=== PATIENT | female | born 1945 | race Hispanic/Latino ===

== ENCOUNTER 2019-12-25 21:24 | Observation (INO) | payer OTHER, SELFPAY ==
[2019-12-26] MEDS ORDERED: Acetaminophen 325 MG TAB PO PRN (00:01)
[2019-12-26] MEDS ORDERED: Senokot S 8.6-50 MG TAB PO PRN (00:01)
[2019-12-26] MEDS ORDERED: HYDROcodone/Acetaminophen 5/325 mg Tablet PO PRN (00:01)
[2019-12-26] MEDS ORDERED: Dextrose 50% Abboject 50 ML SYRINGE SLOW IVP PRN (00:35)
[2019-12-26] MEDS ORDERED: Dextrose 5% in Water 1,000 ML IV PRN (00:35)
[2019-12-26] MEDS ORDERED: HumaLOG 300 UNITS/3 ML VIAL SC PRN ×2 (00:35)
[2019-12-26 01:17] VITALS: BMI 28.2
[2019-12-26] MEDS: Sodium Chloride 0.9% 1,000 ML IV SCH ×2 (01:40→18:09)
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
[2019-12-26] MEDS: Vancomycin 1.5 GRAM/300 ML BAG 1.5 GM in Premix Bag 1 BAG IVPB SCH ×2 (04:04→16:49)
[2019-12-26 05:46] LABS: #Eosinphils 0.2 thou/uL (0.0-0.7); #Lymphocytes 3.4 thou/uL (1.20-3.40); #Monocytes 0.7 thou/uL (0.11-0.59); #Neutrophils 5.4 thou/uL (1.40-6.50); %Basophils 0.3 % (0.0-1.0); %Eosinophils 2.2 % (0.0-10.0); %Lymphocytes 34.9 % (21.0-51.0); %Monocytes 7.5 % (0.0-10.0); %Neutrophils 55.1 % (42.0-75.0); Hemoglobin 13.2 g/dL (12.0-16.0); Mean Corpuscular Hemoglobin 29.7 pg (27.0-31.0); Mean Corpuscular Volume 89.9 fL (78.0-98.0); Mean Platelet Volume 8.3 fL (7.4-10.4); Platelet Count 276 thou/uL (130-400); RBC Distribution Width 12.2 % (11.5-14.5); Red Blood Cell (RBC) Count 4.45 mill/uL (4.20-5.40); White Blood Cell (WBC) Count 9.7 thou/uL (4.8-10.8)
[2019-12-26 06:14] LABS: Anion Gap 12 mmol/L (10-20); BUN (Urea Nitrogen) 16 mg/dL (9.8-20.1); Calc. Creatinine Clearance 100 mL/min (70-130); Calcium 10.1 mg/dL (7.8-10.44); Carbon Dioxide 31 mmol/L (23-31); Chloride 103 mmol/L (98-107); Estimated GFR-MDRD 73; Glucose 122 mg/dL (83-110); Potassium 4.1 mmol/L (3.5-5.1); Sodium 142 mmol/L (136-145)
[2019-12-26] MEDS: Cefepime 2 GM in Sodium Chloride 0.9% 100 ML IVPB SCH ×2 (07:09→18:09)
[2019-12-26] MEDS ORDERED: Propranolol 10 MG TAB PO SCH (10:00)
[2019-12-26 12:28] LABS: SARS-CoV-2 MS2 Positive; SARS-CoV-2 N Gene Negative; SARS-CoV-2 S Gene Negative; SARS-CoV-2 orf1ab Negative
--- NOTE | 2019-12-26 18:35 | PDOC.EVN ---
Event Note - Event Note Event Note: When I came to see the patient she had been taken down to surgery. No complaints noted from staffand vital signs are stable.
[2019-12-26] MEDS ORDERED: Propofol 500 MG/50 ML VIAL ONE (19:14)
[2019-12-26] MEDS ORDERED: Midazolam HCl 2 mg/2 ml Vial ONE (19:14)
[2019-12-26] MEDS ORDERED: Ketamine 50 MG/ML (10ML VIAL) ONE (19:14)
[2019-12-26] MEDS ORDERED: Fentanyl 100 MCG/2 ML VIAL ONE ×2 (19:14→20:27)
[2019-12-26] MEDS ORDERED: Lidocaine 1% w/Epinephrine 1:100K 20 ML VIAL ONE (19:41)
[2019-12-26] MEDS ORDERED: Lidocaine 1% (PF) 30 ML VIAL ONE (19:42)
[2019-12-26] MEDS ORDERED: Promethazine HCl 25 MG/ML VIAL SLOW IVP PRN (20:20)
[2019-12-26] MEDS ORDERED: PACU-Morphine 4MG/ML VIAL SLOW IVP PRN (20:20)
[2019-12-26] MEDS ORDERED: Promethazine HCl 25 MG/ML VIAL IM PRN (20:20)
[2019-12-26] MEDS ORDERED: HYDROmorphone 2 MG/ML VIAL SLOW IVP PRN (20:20)
[2019-12-26] MEDS ORDERED: Ondansetron HCl/PF 4 MG/2 ML Vial IVP PRN (20:20)
[2019-12-26] MEDS ORDERED: Ketorolac Tromethamine 30 MG/ML VIAL ONE (20:26)
[2019-12-26] MEDS: Propranolol 10 MG TAB PO SCH (22:38)
[2019-12-26] MEDS: HYDROcodone/Acetaminophen 5/325 mg Tablet PO PRN (22:38)
[2019-12-27] MEDS: Sodium Chloride 0.9% 1,000 ML IV SCH ×2 (02:29→18:39)
[2019-12-27] MEDS: Vancomycin 1.5 GRAM/300 ML BAG 1.5 GM in Premix Bag 1 BAG IVPB SCH ×2 (02:29→15:12)
[2019-12-27] MEDS: Cefepime 2 GM in Sodium Chloride 0.9% 100 ML IVPB SCH ×2 (06:04→18:24)
--- NOTE | 2019-12-27 07:47 | RAD ---
RIGHT HAND RADIOGRAPHS 3 VIEWS: DATE: 12/27/2019. PROVIDED CLINICAL HISTORY: Pain. FINDINGS: No comparisons. There is localized soft tissue swelling about the thumb IP joint. There is probable associated soft tissue gas. There is no evidence for a fracture. Degenerative changes are seen. A bsence of the 2nd through 4th radius distal to the mid portions of the proximal phalanges. IMPRESSION: Localized soft tissue swelling and probable subtle soft tissue gas about the thumb IP joint. Correla te with concerns for an infectious process. POS: NIC
[2019-12-27] MEDS: Propranolol 10 MG TAB PO SCH ×2 (08:29→20:24)
--- NOTE | 2019-12-27 09:47 | PDOC.HOSPP ---
- Subjective Encounter Date: 12/27/19 Encounter Time: 09:44 Subjective: Ms. Deras was seen today in follow-up of cellulitis and abscess of the right thumb. She notes just a little pain in the finger, but otherwise ok. No new complaints. - Objective Vital Signs & Weight: Vital Signs (12 hours) Temp Pulse Resp BP Pulse Ox 12/27/19 07:21 98.1 F 64 16 149/89 H 97 12/27/19 02:50 68 16 128/72 95 12/27/19 01:50 66 16 123/69 94 L 12/27/19 00:55 66 133/72 93 L 12/26/19 23:50 71 137/75 92 L 12/26/19 22:50 65 124/73 95 12/26/19 22:20 73 124/66 98 12/26/19 21:50 61 131/79 96 Weight Weight 214 lb 0.043 oz I&O: 12/26/19 12/27/19 12/28/19 06:59 06:59 06:59 Intake Total 300 Balance 300 Result Diagrams: 12/26/19 05:15 12/26/19 05:15 Additional Labs: Accuchecks 12/27/19 12/26/19 12/26/19 05:54 14:40 10:40 POC Glucose 104 107 121 H Hospitalist ROS - Medication Medications: Active Medications Generic Name Dose Route Start Last Admin Trade Name Freq PRN Reason Stop Dose Admin Hydrocodone Bitart/Acetaminophen 1 tab 12/26/19 00:01 12/26/19 22:38 Neptune 5/325 PO 1 tab Q4H PRN Administration Moderate Pain (4-6) Sodium Chloride 1,000 mls @ 75 mls/hr 12/26/19 00:30 12/27/19 02:29 Normal Saline 0.9% IV 1,000 mls .[id number] TEJ Administration Cefepime HCl 2 gm/ Sodium 100 mls @ 200 mls/hr 12/26/19 06:00 12/27/19 06:04 Chloride IVPB 100 mls 0600,1800 TEJ Administration Vancomycin HCl 1.5 gm/ Device 300 mls @ 200 mls/hr 12/26/19 03:00 12/27/19 02 :29 IVPB 300 mls 0300,1500 TEJ Administration Pantoprazole Sodium 40 mg 12/26/19 09:00 12/27/19 08:29 Protonix PO 40 mg DAILY TEJ Administration Propranolol HCl 10 mg 12/26/19 21:00 12/27/19 08:29 Inderal PO 10 mg BID TEJ Administration - Exam Eye: PERRL, anicteric sclera Heart: RRR, no murmur, no gallops, no rubs, normal peripheral pulses Respiratory: CTAB, no wheezes, no rales, no ronchi, normal chest expansion, no tachypnea Gastrointestinal: soft, non-tender, non-distended, normal bowel sounds, no palpable masses Extremities: no cyanosis (+ swelling of the first finger, and it is wrapped, she has ampuation of the 2-4th fingers on that same hand. goor radial and ulnar pulse) Hosp A/P (1) Cellulitis of right thumb Code(s): L03.011 - CELLULITIS OF RIGHT FINGER Status: Acute (2) Diabetes mellitus type 2 in nonobese Code(s): E11.9 - TYPE 2 DIABETES MELLITUS WITHOUT COMPLICATIONS Status: Chronic (3) Hypertension Code(s): I10 - ESSENTIAL (PRIMARY) HYPERTENSION Status: Chronic - Plan * Cellulitis of the thumb on the right hand- she is s/p I and D. and cultures have been sent * Continue IV antibiotics pending culture results * DM- blood glucose is stable- re-start Metformin, and continue SSI * HTN- blood pressure is stable- will re-start her home medications
--- NOTE | 2019-12-27 10:35 | CON ---
DATE OF CONSULTATION: We were asked by the [facility] to see the patient. She came in with a fairly large, red, inflamed right thumb. HISTORY OF PRESENT ILLNESS: Per Roxie, who is interpreting, is that she hit it a few weeks ago and then she hit it again recently and it remained large. She did try and poke it with a needle and did per reports get some purulent discharge, thumb continued to plague patient and therefore, she came into the hospital for evaluation. She has good sensations to the tip of her thumb. Able to move it well, but area to the distal thumb is quite tender to palpation. She does not have any signs of cellulitis trickling up her arm. It looks to be contained in that right thumb. PAST MEDICAL HISTORY: 1. Hypertension. 2. Diabetes. 3. Cholesterol. CURRENT MEDICATIONS: 1. Lisinopril. 2. Metformin. 3. Propranolol. 4. Simvastatin. ALLERGIES: NO KNOWN DRUG ALLERGIES. PAST SURGICAL HISTORY: She did lose her second, third, fourth digits on the right hand, and had those repaired. SOCIAL HISTORY: No alcohol, nicotine, or illicit drug use whatsoever. FAMILY HISTORY: For this visit is noncontributory. REVIEW OF SYSTEMS: She has no complaints other than the right thumb. Right now, denies any chest pain or shortness of breath. No bowel or bladder problems per clinical recruiter. She feels quite good, and rest of review of systems is negative. PHYSICAL EXAMINATION: GENERAL: Well-nourished, well-developed female, alert, pleasant, no acute distress. Speech is clear. Affect is pleasant. Answers question appropriately per clinical recruiter without any difficulties. HEENT: Face is symmetric. Tongue is midline. NECK: Supple. Trachea in midline. Moving well. EXTREMITIES: Upper extremities are equal size, shape, symmetry, normal bulk and tone with the exception of the right thumb, which has quite a bit of edema, erythema, and it is tender to ther touch. She has good sensations to the thumb, and again, there are no cellulitis like symptoms running up the arm. Pulses are intact. Sensations good. VITAL SIGNS: Respiratory rate 16. No acute distress. Rest of physical exam is normal. ASSESSMENT: Right thumb infection. PLAN: We will get her to the OR today and get her washed out. Per clinical recruiter, this was explained to her. We also went over the risks and benefits of surgery, and she is amenable to go forth with the surgery. Her questions and concerns have been addressed. We will get her some preoperative antibiotics after we I and D the thumb, get some cultures, and then probably leave a drain in, and if she is doing okay, might be able to discharge tomorrow morning. Job ID: [id number]
[2019-12-27 14:27] LABS: Vancomycin, Trough 19.7 ug/mL
[2019-12-27] MEDS: HYDROcodone/Acetaminophen 5/325 mg Tablet PO PRN ×2 (15:16→20:24)
--- NOTE | 2019-12-27 15:17 | OP ---
DATE OF PROCEDURE: 12/26/2019 PREOPERATIVE DIAGNOSIS: Right thumb abscess. POSTOPERATIVE DIAGNOSIS: Right thumb subcutaneous tophi. PROCEDURE PERFORMED: Incision and debridement of right thumb tophi. ANESTHESIA: General. TOURNIQUET TIME: 21 minutes at 250 mmHg. COMPLICATIONS: None. DRAINS: None. SPECIMEN: Swab sent for Gram-stain, culture, and sensitivity as well as tissue sent to Path for gross. OUTCOME: Satisfactory. INDICATIONS FOR PROCEDURE: The patient is a 74 year old lady, who was admitted on December 24 to the hospital after transferred from our [facility] with a 2-week history of pain and swelling in the right thumb. She reports that 2 weeks ago, she accidentally struck her thumb with a hammer and since that time has had some increasing pain and swelling, most noticeable over the interphalangeal joint of this thumb. She reports that she poked the area with a needle and did have some pus come out from this area and with this presented to the emergency room. She was subsequently transferred to [facility] for Orthopedic evaluation. She was found to have a white blood cell count of 9.7. She clinically was found to have a very swollen, what felt to be a possible subcutaneous abscess over this interphalangeal joint. There was no evidence of pain to palpation along the flexor sheath or into the thenar eminence. As such, the patient now taken to the operating room for incision and drainage. DESCRIPTION OF PROCEDURE: The patient was brought to the operating room and a time-out performed followed by induction of general anesthesia. Next, she was positioned supine on the OR table and a sterile prep and drape performed of the right upper extremity. Next, centered on the site from her attempt at self drainage with a needle, a small V-shaped incision was made over the dorsal radial aspect of the thumb. After skin was sharply incised, dissection carried down bluntly into the subcutaneous space and at this point, what appeared to be tophi was really encountered. This was imbedded throughout the soft tissue in the subcutaneous space. It did not appear to enter the interphalangeal joint itself as the capsule did appear to be intact. I really did not encounter purulent material to speak off, but rather just this tophi that was quite diffuse. As such using a combination of sharp technique with scalpel as well as a curette, the tophaceous material was excised from the subcutaneous space. At the completion of this, the wound was thoroughly irrigated with a liter of normal saline with bulb syringe and then a closure performed with 3-0 nylon. Xeroform gauze and tape dressing was applied to the thumb and then the patient was transferred to recovery room in stable condition. There were no complications. She tolerated the procedure well. Job ID: [id number] MTDD
[2019-12-27] MEDS ORDERED: Atorvastatin Calcium 20 MG TAB PO SCH (21:00)
[2019-12-28] MEDS: Vancomycin 1.5 GRAM/300 ML BAG 1.5 GM in Premix Bag 1 BAG IVPB SCH (03:56)
[2019-12-28] MEDS: Cefepime 2 GM in Sodium Chloride 0.9% 100 ML IVPB SCH (05:47)
[2019-12-28] MEDS: Sodium Chloride 0.9% 1,000 ML IV SCH (07:02)
[2019-12-28] MEDS ORDERED: metFORMIN 500 MG TAB PO SCH (08:00)
[2019-12-28] MEDS: Propranolol 10 MG TAB PO SCH (08:23)
[2019-12-28] MEDS ORDERED: Lisinopril 5 MG TAB PO SCH (09:00)
[2019-12-28] MEDS ORDERED: Sulfameth/Trimethoprim DS 800-160mg TAB PO SCH ×2 (09:15→21:00)
[2019-12-28 11:17] VITALS: BP 129/74; TEMP 98.5
--- NOTE | 2019-12-28 20:41 | DIS ---
DATE OF ADMISSION: 12/25/2019 DATE OF DISCHARGE: 12/28/2019 DISCHARGE DISPOSITION: Home. DISCHARGE DIAGNOSES: 1. Cellulitis of the first finger on the right hand. 2. Diabetes mellitus type 2. 3. Hypertension. 4. Probable gout. DISCHARGE MEDICATIONS: 1. Bactrim DS 1 tablet twice daily. 2. Simvastatin 40 mg q.p.m. 3. Propranolol 10 mg twice daily. 4. Metformin 500 mg daily. 5. Lisinopril 5 mg daily. PROCEDURES DONE DURING THE HOSPITAL STAY: The patient had an I and D of the thumb. CODE STATUS: Full code. ALLERGIES: NO KNOWN DRUG ALLERGIES. HOSPITAL COURSE: Ms. Cassie Deras is a pleasant 74-year-old female, who presented to the hospital with a swollen and painful thumb. She says that she had tried treating it on her own, but she was not successful. The swelling got worse and she came to the hospital. She was started on IV antibiotics and Orthopedic Surgery was consulted. 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 She was placed on antibiotics and cultures were taken. At the time of discharge, the cultures were negative and she was instructed to follow up with her physician and workup for gout can be undertaken by her primary care physician. Job ID: [id number]
== END 2019-12-28 13:10 | disposition home or self-care (01) ==
LOC: SURG A 23:18 → INTOOBSV 23:18
PROVIDERS: ADMIT Internal Medicine; ATTEND Internal Medicine
PROC: 0HBFXZZ Excision of Right Hand Skin, External Approach (ICD-10-PCS; principal; 2019-12-28)
DX: M1A.9XX1 Chronic gout, unspecified, with tophus (tophi) (principal); I10 Essential (primary) hypertension; E11.9 Type 2 diabetes mellitus without complications; E78.00 Pure hypercholesterolemia, unspecified; E78.5 Hyperlipidemia, unspecified; Z79.84 Long term (current) use of oral hypoglycemic drugs; Z79.899 Other long term (current) drug therapy
CPT/HCPCS: 36415; 36416; 80048; 80202; 84550; 85025; 87070; 87102; 87205; 87635; 88305; 89060; 96365; 96366; 96367; 96376; G0378; J0692; J1885; J2001; J2250; J2704; J3010; J3370; J3490; U0003

== ENCOUNTER 2023-03-23 23:02 | Inpatient (IN) | payer MEDICAID, SELFPAY ==
[2023-03-23] MEDS ORDERED: Pantoprazole 40 MG VIAL ONE (23:20)
[2023-03-23] MEDS ORDERED: Ondansetron PF 4 MG/2 ML Vial ONE (23:20)
[2023-03-23 23:21] LABS: Analyzer IN Cardio ER; Base Excess (BEa) -19.1 mEq/L (-2.0 to +3.0); Calcium, Ionized (arterial) 1.15 mmol/L (1.12-1.30); Carboxyhemoglobin (COHb) 0.1 gm% (0.0-3.0); Hematocrit-ABG 37 % (36.0-47.0); Hemoglobin (Hb) 12.7 g/dL (12.0-16.0); O2 Tension (PaO2), arterial 121.3 mmHg (> 70.0)
[2023-03-23 23:25] LABS: #Monocytes 0.5 thou/uL (0.11-0.59); #Neutrophils 12.6 thou/uL (1.40-6.50); %Basophils 0.1 % (0.0-1.0); %Lymphocytes 2.5 % (21.0-51.0); %Monocytes 3.5 % (0.0-10.0); %Neutrophils 93.7 % (42.0-75.0); Hematocrit 36.4 % (36.0-47.0); Hemoglobin 12.3 g/dL (12.0-16.0); Mean Corpuscular HGB CONC 33.8 g/dL (32.0-36.0); Mean Corpuscular Hemoglobin 29.6 pg (27.0-31.0); Mean Corpuscular Volume 87.5 fl (78.0-98.0); Mean Platelet Volume 11.9 fL (7.4-10.4); Platelet Count 150 10x3/uL (130-400); RBC Distribution Width 13.9 % (11.5-14.5); Red Blood Cell (RBC) Count 4.16 mill/uL (4.20-5.40); White Blood Cell (WBC) Count 13.4 10x3/uL (4.8-10.8)
[2023-03-23 23:27] LABS: Actual Bicarbonate (HCO3a) 6.6 mEq/L (22-28); pH, Arterial 7.206 (7.35-7.45)
[2023-03-23 23:28] LABS: Potassium - ABG Lab 7.27 mmol/L (3.70-5.30); Puncture Site LBA
[2023-03-23] MEDS ORDERED: Pantoprazole 80 MG, Admixture Fee 1 EACH in Sodium Chloride 0.9% 100 ML IVPB SCH (23:30)
[2023-03-23] MEDS ORDERED: Cefepime 2 GM VIAL ONE (23:31)
[2023-03-23 23:39] LABS: INR-International Normal Ratio 1.3; PTT 34.1 sec (22.9-36.1); Prothrombin Time 16.5 sec (12.0-14.7)
[2023-03-23] MEDS ORDERED: Calcium Chloride 1 GM/10 ML Abboject SYRINGE ONE (23:48)
[2023-03-23] MEDS ORDERED: Insulin Regular 300 UNITS/3 ML VIAL ONE (23:48)
[2023-03-23] MEDS ORDERED: Dextrose 50% Abboject 50 ML SYRINGE ONE (23:48)
[2023-03-23] MEDS ORDERED: Sodium Bicarb 50 MEQ/50 ML VIAL ONE (23:48)
[2023-03-23 23:58] LABS: ALT (SGPT) 21 U/L (8-55); AST (SGOT) 9 U/L (5-34); Albumin 4.3 g/dL (3.4-4.8); Alkaline Phosphatase 69 U/L (40-110); Bilirubin, Total 0.6 mg/dL (0.2-1.2); Calc. Creatinine Clearance 0 mL/min (70-130); Calcium 9.7 mg/dL (7.8-10.44); Chloride 103 mmol/L (98-107); Estimated GFR 3; Glucose 145 mg/dL (83-110); Lipase 894 U/L (8-78); Protein, Total 8.3 g/dL (5.8-8.1); Sodium 141 mmol/L (136-145)
[2023-03-23 23:59] LABS: BUN (Urea Nitrogen) 320 mg/dL (9.8-20.1)
[2023-03-24 00:01] LABS: Carbon Dioxide Less than 8 mmol/L (23-31); Potassium 7.3 mmol/L (3.5-5.1)
[2023-03-24 00:01] LABS: Bacteria/HPF 4+ HPF (None Seen); Bilirubin Negative (Negative); Blood, Urine 1+ (Negative); CAUTI Indications for Culture Alt mental st,lethar; Clarity Turbid (Clear); Glucose, Urine (Dipstick) Normal (Negative); Ketone, Urine Trace mg/dL (Negative); Leukocyte 500 Leu/uL (Negative); Nitrite Negative (Negative); Protein, Urine (Dipstick) 100 mg/dL (Neg-Trace); Specific Gravity, Urine 1.024 (1.002-1.036); Squamous Epithelial None Seen HPF (0-3); WBC/HPF Greater than 50 HPF (0-3); pH, Urine 5.5 (5.0-9.0)
[2023-03-24 00:05] LABS: Urine Culture Reflex Yes Yes
[2023-03-24 00:05] LABS: Troponin I 0.247 ng/mL (< 0.028)
[2023-03-24] MEDS ORDERED: LOKELMA 10 GM PACKET PO SCH (00:45)
[2023-03-24] MEDS ORDERED: Sodium Bicarbonate 150 MEQ in Dextrose 5% in Water 1,000 ML IV SCH ×2 (00:45→07:30)
[2023-03-24] MEDS ORDERED: Ondansetron ODT 4 MG TAB PO PRN (01:34)
[2023-03-24] MEDS ORDERED: Acetaminophen 650 MG Suppository PR PRN (01:34)
[2023-03-24] MEDS ORDERED: Ondansetron PF 4 MG/2 ML Vial IVP PRN ×2 (01:34→05:07)
[2023-03-24] MEDS ORDERED: Sodium Bicarbonate 150 MEQ in Dextrose 5% in Water 1,000 ML IV ONE (01:45)
[2023-03-24] MEDS ORDERED: Sodium Chloride 0.9% 1,000 ML IV SCH ×2 (01:45→04:45)
[2023-03-24 02:33] LABS: Calc. Creatinine Clearance 0 mL/min (70-130); Calcium 9.6 mg/dL (7.8-10.44); Chloride 112 mmol/L (98-107); Estimated GFR 3; Glucose 129 mg/dL (83-110); Sodium 144 mmol/L (136-145)
[2023-03-24 02:43] LABS: Carbon Dioxide Less than 8 mmol/L (23-31); Potassium 6.3 mmol/L (3.5-5.1)
[2023-03-24 02:45] LABS: BUN (Urea Nitrogen) 297 mg/dL (9.8-20.1)
[2023-03-24] MEDS ORDERED: Dextrose 50% Abboject 50 ML SYRINGE SLOW IVP PRN (03:05)
[2023-03-24] MEDS ORDERED: Glucagon 1 MG/ML KIT IM PRN (03:05)
[2023-03-24] MEDS ORDERED: Dextrose 5% in Water 1,000 ML IV PRN (03:05)
[2023-03-24] MEDS ORDERED: HumaLOG 300 UNITS/3 ML VIAL SC PRN (03:05)
[2023-03-24 03:27] LABS: Critical Call Chem Troponin I RESULT DECREASING; Troponin I 0.207 ng/mL (< 0.028)
[2023-03-24] MEDS ORDERED: dilTIAZem 25 MG/5 ML VIAL ONE (03:54)
[2023-03-24] MEDS: dilTIAZem 25 MG/5 ML VIAL SLOW IVP SCH ×2 (04:10→04:27)
[2023-03-24] MEDS: Lactated Ringer's 1,000 ML IV SCH ×2 (04:13→04:18)
[2023-03-24] MEDS ORDERED: Vancomycin 1.5 GRAM/300 ML BAG 1.5 GM in Premix Bag 1 BAG IVPB SCH (04:15)
[2023-03-24] MEDS ORDERED: Amiodarone 450 MG in Dextrose 5% in Water 250 ML IVPB SCH (04:15)
[2023-03-24] MEDS ORDERED: Vancomycin Dose by Levels Sliding Scale (Wt 71-99) FS SCH (04:15)
[2023-03-24] MEDS ORDERED: dilTIAZem 25 MG/5 ML VIAL SLOW IVP SCH (04:23)
[2023-03-24 04:40] LABS: Base Excess (BEa) -16.5 mEq/L (-2.0 to +3.0); Carboxyhemoglobin (COHb) 0.4 gm% (0.0-3.0); Hematocrit-ABG 37 % (36.0-47.0); Hemoglobin (Hb) 12.6 g/dL (12.0-16.0); O2 Tension (PaO2), arterial 103.3 mmHg (> 70.0); Potassium - ABG Lab 5.32 mmol/L (3.70-5.30); pH, Arterial 7.254 (7.35-7.45)
[2023-03-24 04:44] LABS: Puncture Site RRA
[2023-03-24] MEDS ORDERED: Dextrose 50% Abboject 50 ML SYRINGE SLOW IVP SCH (05:00)
[2023-03-24 05:28] LABS: #Monocytes 0.8 thou/uL (0.11-0.59); #Neutrophils 11.8 thou/uL (1.40-6.50); %Basophils 0.1 % (0.0-1.0); %Monocytes 5.9 % (0.0-10.0); %Neutrophils 86.5 % (42.0-75.0); Hemoglobin 12.7 g/dL (12.0-16.0); Mean Corpuscular HGB CONC 34.3 g/dL (32.0-36.0); Mean Corpuscular Hemoglobin 29.6 pg (27.0-31.0); Mean Corpuscular Volume 86.2 fl (78.0-98.0); Mean Platelet Volume 12.4 fL (7.4-10.4); Platelet Count 93 10x3/uL (130-400); RBC Distribution Width 13.8 % (11.5-14.5); Red Blood Cell (RBC) Count 4.29 mill/uL (4.20-5.40); White Blood Cell (WBC) Count 13.6 10x3/uL (4.8-10.8)
[2023-03-24 05:38] LABS: Lactic Acid 1.4 mmol/L (0.5-2.2)
[2023-03-24 05:45] LABS: Calc. Creatinine Clearance 6 mL/min (70-130); Calcium 9.8 mg/dL (7.8-10.44); Chloride 110 mmol/L (98-107); Estimated GFR 3; Glucose 120 mg/dL (83-110); Lipase 835 U/L (8-78); Potassium 5.8 mmol/L (3.5-5.1); Sodium 146 mmol/L (136-145)
[2023-03-24 05:47] LABS: Carbon Dioxide Less than 8 mmol/L (23-31)
[2023-03-24 05:54] LABS: BUN (Urea Nitrogen) 287 mg/dL (9.8-20.1)
[2023-03-24 06:06] LABS: Troponin I 0.192 ng/mL (< 0.028)
[2023-03-24 08:13] LABS: Anion Gap 30 mmol/L (10-20); Calc. Creatinine Clearance 6 mL/min (70-130); Calcium 9.8 mg/dL (7.8-10.44); Carbon Dioxide 10 mmol/L (23-31); Chloride 110 mmol/L (98-107); Estimated GFR 4; Glucose 150 mg/dL (83-110); Sodium 145 mmol/L (136-145)
[2023-03-24 08:46] LABS: Burr Cells SLIGHT = 2-5 cells (100X) (0-1/hpf); RBC Morph Comment Within Normal Limits
[2023-03-24 08:47] LABS: Platelet Adequacy Comment Appears Decreased
[2023-03-24 09:00] LABS: BUN (Urea Nitrogen) 274 mg/dL (9.8-20.1)
[2023-03-24] MEDS ORDERED: Heparin 5,000 UNITS/ML VIAL SC SCH (09:00)
[2023-03-24 15:19] LABS: #Monocytes 0.9 thou/uL (0.11-0.59); %Basophils 0.2 % (0.0-1.0); %Eosinophils 0.1 % (0.0-10.0); %Lymphocytes 9.4 % (21.0-51.0); %Monocytes 7.9 % (0.0-10.0); Hematocrit 34.5 % (36.0-47.0); Hemoglobin 12.1 g/dL (12.0-16.0); Mean Corpuscular HGB CONC 35.1 g/dL (32.0-36.0); Mean Corpuscular Hemoglobin 29.7 pg (27.0-31.0); Mean Corpuscular Volume 84.8 fl (78.0-98.0); Mean Platelet Volume 12.4 fL (7.4-10.4); Platelet Count 107 10x3/uL (130-400); RBC Distribution Width 13.5 % (11.5-14.5); Red Blood Cell (RBC) Count 4.07 mill/uL (4.20-5.40)
[2023-03-24 16:09] LABS: Anion Gap 27 mmol/L (10-20); Calc. Creatinine Clearance 9 mL/min (70-130); Calcium 9.4 mg/dL (7.8-10.44); Carbon Dioxide 16 mmol/L (23-31); Chloride 109 mmol/L (98-107); Estimated GFR 6; Glucose 195 mg/dL (83-110); Potassium 3.6 mmol/L (3.5-5.1); Sodium 148 mmol/L (136-145)
[2023-03-24] MEDS: HumaLOG 300 UNITS/3 ML VIAL SC PRN ×2 (16:56→22:36)
[2023-03-24 17:10] LABS: BUN (Urea Nitrogen) 241 mg/dL (9.8-20.1)
[2023-03-24] MEDS ORDERED: Sodium Bicarbonate 100 MEQ in Dextrose 5% in Water 1,000 ML IV SCH (18:30)
[2023-03-24 19:34] LABS: Anion Gap 27 mmol/L (10-20); Calc. Creatinine Clearance 10 mL/min (70-130); Calcium 9.3 mg/dL (7.8-10.44); Carbon Dioxide 13 mmol/L (23-31); Chloride 113 mmol/L (98-107); Estimated GFR 7; Glucose 170 mg/dL (83-110); Potassium 3.9 mmol/L (3.5-5.1); Sodium 149 mmol/L (136-145)
[2023-03-24 19:47] LABS: BUN (Urea Nitrogen) 225 mg/dL (9.8-20.1)
[2023-03-24] MEDS: fentaNYL 50 mcg/mL 1 mL Vial SLOW IVP PRN ×2 (20:36→21:54)
[2023-03-24] MEDS: Pantoprazole 40 MG VIAL IVP SCH (20:47)
[2023-03-24] MEDS ORDERED: Cefepime 0.5 GM in Sodium Chloride 0.9% 100 ML IVPB SCH (21:00)
[2023-03-25 04:25] LABS: #Monocytes 0.6 thou/uL (0.11-0.59); #Neutrophils 8.8 thou/uL (1.40-6.50); %Basophils 0.1 % (0.0-1.0); %Lymphocytes 7.4 % (21.0-51.0); %Monocytes 5.7 % (0.0-10.0); %Neutrophils 86.4 % (42.0-75.0); Hematocrit 36.4 % (36.0-47.0); Hemoglobin 12.5 g/dL (12.0-16.0); Mean Corpuscular HGB CONC 34.3 g/dL (32.0-36.0); Mean Corpuscular Hemoglobin 30.2 pg (27.0-31.0); Mean Platelet Volume 12.1 fL (7.4-10.4); Platelet Count 108 10x3/uL (130-400); RBC Distribution Width 13.7 % (11.5-14.5); Red Blood Cell (RBC) Count 4.14 mill/uL (4.20-5.40); White Blood Cell (WBC) Count 10.2 10x3/uL (4.8-10.8)
[2023-03-25 04:28] LABS: Mean Corpuscular Volume 87.9 fl (78.0-98.0)
[2023-03-25 04:37] LABS: Vancomycin, Random 14.6 ug/mL (See Comment)
[2023-03-25 04:51] LABS: ALT (SGPT) 16 U/L (8-55); AST (SGOT) 17 U/L (5-34); Albumin 3.6 g/dL (3.4-4.8); Alkaline Phosphatase 55 U/L (40-110); Anion Gap 24 mmol/L (10-20); Bilirubin, Total 0.7 mg/dL (0.2-1.2); Calc. Creatinine Clearance 13 mL/min (70-130); Calcium 9.5 mg/dL (7.8-10.44); Carbon Dioxide 20 mmol/L (23-31); Chloride 111 mmol/L (98-107); Estimated GFR 9; Globulin 3.2 g/dL (2.4-3.5); Glucose 226 mg/dL (83-110); Lipase 359 U/L (8-78); Potassium 3.2 mmol/L (3.5-5.1); Protein, Total 6.8 g/dL (5.8-8.1)
[2023-03-25 04:55] LABS: Sodium 152 mmol/L (136-145)
[2023-03-25] MEDS ORDERED: Vancomycin HCl 750 MG in Sodium Chloride 0.9% 250 ML 250 ML IVPB SCH (05:00)
[2023-03-25 05:03] LABS: BUN (Urea Nitrogen) 211 mg/dL (9.8-20.1)
[2023-03-25] MEDS: HumaLOG 300 UNITS/3 ML VIAL SC PRN (05:07)
[2023-03-25] MEDS ORDERED: Cefepime 0.5 GM, Admixture Fee 1 EACH in Sodium Chloride 0.9% 100 ML IVPB SCH ×2 (07:15→21:00)
[2023-03-25] MEDS ORDERED: Sodium Chloride 0.45% 1,000 ML IV SCH (08:15)
[2023-03-25] MEDS ORDERED: Potassium Chloride 20 MEQ in Premix Bag 1 BAG IVPB SCH ×2 (08:15)
[2023-03-25] MEDS: Dextrose 5% in Water 1,000 ML IV SCH ×4 (09:21→23:28)
[2023-03-25] MEDS: Pantoprazole 40 MG VIAL IVP SCH ×2 (10:15→21:00)
[2023-03-25] MEDS: fentaNYL 50 mcg/mL 1 mL Vial SLOW IVP PRN (14:57)
[2023-03-25 16:27] LABS: Anion Gap 21 mmol/L (10-20); Calc. Creatinine Clearance 19 mL/min (70-130); Calcium 8.9 mg/dL (7.8-10.44); Carbon Dioxide 23 mmol/L (23-31); Chloride 116 mmol/L (98-107); Estimated GFR 14; Glucose 171 mg/dL (83-110); Potassium 3.2 mmol/L (3.5-5.1)
[2023-03-25 16:30] LABS: Sodium 157 mmol/L (136-145)
[2023-03-25 17:12] LABS: BUN (Urea Nitrogen) 200 mg/dL (9.8-20.1)
[2023-03-25 17:53] LABS: Anion Gap 18 mmol/L (10-20); Calc. Creatinine Clearance 19 mL/min (70-130); Calcium 9.2 mg/dL (7.8-10.44); Carbon Dioxide 25 mmol/L (23-31); Chloride 114 mmol/L (98-107); Estimated GFR 15; Glucose 185 mg/dL (83-110); Potassium 3.1 mmol/L (3.5-5.1)
[2023-03-25 17:58] LABS: Sodium 154 mmol/L (136-145)
[2023-03-25 18:04] LABS: BUN (Urea Nitrogen) 178 mg/dL (9.8-20.1)
[2023-03-26] MEDS: Dextrose 5% in Water 1,000 ML IV SCH ×6 (02:46→22:31)
[2023-03-26 05:19] LABS: #Monocytes 0.7 thou/uL (0.11-0.59); #Neutrophils 7.4 thou/uL (1.40-6.50); %Basophils 0.2 % (0.0-1.0); %Eosinophils 0.2 % (0.0-10.0); %Lymphocytes 14.2 % (21.0-51.0); %Monocytes 7.8 % (0.0-10.0); %Neutrophils 77.3 % (42.0-75.0); Hematocrit 36.3 % (36.0-47.0); Hemoglobin 12.1 g/dL (12.0-16.0); Mean Corpuscular HGB CONC 33.3 g/dL (32.0-36.0); Mean Corpuscular Hemoglobin 29.7 pg (27.0-31.0); Platelet Count 91 10x3/uL (130-400); RBC Distribution Width 13.5 % (11.5-14.5); Red Blood Cell (RBC) Count 4.08 mill/uL (4.20-5.40); White Blood Cell (WBC) Count 9.5 10x3/uL (4.8-10.8)
[2023-03-26 06:10] LABS: Chloride 114 mmol/L (98-107); Potassium 3.3 mmol/L (3.5-5.1); Sodium 152 mmol/L (136-145)
[2023-03-26 06:11] LABS: ALT (SGPT) 16 U/L (8-55); AST (SGOT) 16 U/L (5-34); Albumin 3.5 g/dL (3.4-4.8); Alkaline Phosphatase 57 U/L (40-110); Anion Gap 17 mmol/L (10-20); Bilirubin, Total 0.6 mg/dL (0.2-1.2); Calc. Creatinine Clearance 27 mL/min (70-130); Carbon Dioxide 24 mmol/L (23-31); Estimated GFR 22; Globulin 3.2 g/dL (2.4-3.5); Glucose 185 mg/dL (83-110); Protein, Total 6.7 g/dL (5.8-8.1)
[2023-03-26 06:12] LABS: BUN (Urea Nitrogen) 152 mg/dL (9.8-20.1)
[2023-03-26] MEDS: Pantoprazole 40 MG VIAL IVP SCH ×2 (08:40→20:17)
[2023-03-26] MEDS: Potassium Chloride 20 MEQ/100 ML PREMIX BAG IVPB SCH ×2 (14:27→14:29)
[2023-03-26 20:07] LABS: Potassium 3.8 mmol/L (3.5-5.1)
[2023-03-26 20:15] LABS: Sodium 155 mmol/L (136-145)
[2023-03-26] MEDS ORDERED: hydrALAZINE 20 MG/ML VIAL SLOW IVP PRN (20:53)
[2023-03-26] MEDS ORDERED: Cefepime 1 GM in Sodium Chloride 0.9% 100 ML IVPB SCH (21:00)
[2023-03-26] MEDS ORDERED: Communication Order-Pharmacy FS PRN (21:07)
[2023-03-26] MEDS: fentaNYL 50 mcg/mL 1 mL Vial SLOW IVP PRN (21:35)
[2023-03-27] MEDS: Dextrose 5% in Water 1,000 ML IV SCH ×5 (00:37→17:04)
[2023-03-27 06:32] LABS: #Monocytes 0.8 thou/uL (0.11-0.59); #Neutrophils 7.2 thou/uL (1.40-6.50); %Basophils 0.1 % (0.0-1.0); %Eosinophils 0.3 % (0.0-10.0); %Lymphocytes 15.6 % (21.0-51.0); %Monocytes 8.3 % (0.0-10.0); %Neutrophils 75.2 % (42.0-75.0); Hematocrit 34.7 % (36.0-47.0); Hemoglobin 11.2 g/dL (12.0-16.0); Mean Corpuscular HGB CONC 32.3 g/dL (32.0-36.0); Mean Corpuscular Hemoglobin 29.7 pg (27.0-31.0); Mean Platelet Volume 11.5 fL (7.4-10.4); RBC Distribution Width 13.4 % (11.5-14.5); Red Blood Cell (RBC) Count 3.77 mill/uL (4.20-5.40); White Blood Cell (WBC) Count 9.6 10x3/uL (4.8-10.8)
[2023-03-27 06:33] LABS: Platelet Count 84 10x3/uL (130-400)
[2023-03-27 07:00] LABS: Anion Gap 17 mmol/L (10-20); BUN (Urea Nitrogen) 96 mg/dL (9.8-20.1); Calc. Creatinine Clearance 50 mL/min (70-130); Calcium 8.7 mg/dL (7.8-10.44); Carbon Dioxide 27 mmol/L (23-31); Chloride 112 mmol/L (98-107); Estimated GFR 45; Glucose 162 mg/dL (83-110); Potassium 3.4 mmol/L (3.5-5.1)
[2023-03-27 07:16] LABS: Sodium 153 mmol/L (136-145)
[2023-03-27] MEDS ORDERED: Potassium Chloride 20 MEQ TAB PO SCH (08:00)
[2023-03-27] MEDS: fentaNYL 50 mcg/mL 1 mL Vial SLOW IVP PRN ×2 (08:15→17:03)
[2023-03-27] MEDS: Potassium Chloride 20 MEQ in Premix Bag 1 BAG IVPB SCH ×2 (08:50→10:30)
[2023-03-27] MEDS: WATER IVPB SCH ×2 (08:58→16:59)
[2023-03-27] MEDS: DEXTROSE 5% IVPB SCH ×2 (08:58→16:59)
[2023-03-27] MEDS: CEFAZOLIN IVPB SCH ×2 (08:58→16:59)
[2023-03-27 09:06] LABS: Magnesium 1.1 mg/dL (1.6-2.6)
[2023-03-27] MEDS ORDERED: Electrolyte Replacement Protocol 1 EACH FS SCH (09:15)
[2023-03-27] MEDS ORDERED: Magnesium Sulfate In Water 4 GM in Premix Bag 1 BAG IVPB SCH (10:00)
[2023-03-27 16:39] LABS: Anion Gap 14 mmol/L (10-20); BUN (Urea Nitrogen) 72 mg/dL (9.8-20.1); Calc. Creatinine Clearance 54 mL/min (70-130); Calcium 8.5 mg/dL (7.8-10.44); Carbon Dioxide 28 mmol/L (23-31); Chloride 108 mmol/L (98-107); Estimated GFR 50; Glucose 181 mg/dL (83-110); Magnesium 1.9 mg/dL (1.6-2.6); Phosphorus 1.7 mg/dL (2.3-4.7); Potassium 3.4 mmol/L (3.5-5.1); Sodium 147 mmol/L (136-145)
[2023-03-27] MEDS ORDERED: CEFEPIME IVPB SCH (21:00)
[2023-03-27] MEDS ORDERED: ADMIXTURE FEE IVPB SCH (21:00)
[2023-03-27] MEDS ORDERED: Potassium Phosphate 15 MMOL in Sodium Chloride 0.9% 100 ML IVPB SCH (21:00)
[2023-03-27] MEDS ORDERED: WATER IVPB SCH (21:00)
[2023-03-27] MEDS ORDERED: DEXTROSE IVPB SCH (21:00)
[2023-03-27] MEDS ORDERED: Magnesium 2 GM/50 ML(in water) 2 GM in Premix Bag 1 BAG IVPB SCH (21:00)
[2023-03-27] MEDS: Pantoprazole 40 MG VIAL IVP SCH (21:08)
[2023-03-28] MEDS ORDERED: Potassium Chloride 20 MEQ in Premix Bag 1 BAG IVPB SCH (01:00)
[2023-03-28] MEDS: DEXTROSE 5% IVPB SCH ×3 (02:10→18:31)
[2023-03-28] MEDS: WATER IVPB SCH ×3 (02:10→18:31)
[2023-03-28] MEDS: CEFAZOLIN IVPB SCH ×3 (02:10→18:31)
[2023-03-28] MEDS: Dextrose 5% in Water 1,000 ML IV SCH ×3 (03:25→22:51)
[2023-03-28 03:43] LABS: #Monocytes 0.6 thou/uL (0.11-0.59); #Neutrophils 7.7 thou/uL (1.40-6.50); %Eosinophils 0.3 % (0.0-10.0); %Lymphocytes 13.2 % (21.0-51.0); %Monocytes 5.7 % (0.0-10.0); %Neutrophils 80.2 % (42.0-75.0); Hematocrit 36.4 % (36.0-47.0); Hemoglobin 11.5 g/dL (12.0-16.0); Mean Corpuscular HGB CONC 31.6 g/dL (32.0-36.0); Mean Corpuscular Hemoglobin 29.3 pg (27.0-31.0); Mean Corpuscular Volume 92.6 fl (78.0-98.0); Mean Platelet Volume 12.3 fL (7.4-10.4); RBC Distribution Width 13.2 % (11.5-14.5); Red Blood Cell (RBC) Count 3.93 mill/uL (4.20-5.40); White Blood Cell (WBC) Count 9.7 10x3/uL (4.8-10.8)
[2023-03-28 03:46] LABS: Platelet Count 88 10x3/uL (130-400)
[2023-03-28 04:27] LABS: Anion Gap 15 mmol/L (10-20); BUN (Urea Nitrogen) 51 mg/dL (9.8-20.1); Calc. Creatinine Clearance 61 mL/min (70-130); Calcium 8.6 mg/dL (7.8-10.44); Carbon Dioxide 29 mmol/L (23-31); Chloride 104 mmol/L (98-107); Estimated GFR 59; Glucose 142 mg/dL (83-110); Magnesium 1.8 mg/dL (1.6-2.6); Phosphorus 2.2 mg/dL (2.3-4.7); Potassium 3.7 mmol/L (3.5-5.1); Sodium 144 mmol/L (136-145)
[2023-03-28] MEDS ORDERED: Magnesium 2 GM/50 ML(in water) 2 GM in Premix Bag 1 BAG IVPB SCH (08:00)
[2023-03-28] MEDS ORDERED: HYDROcodone/Acetaminophen 5/325 mg Tablet PO PRN (08:01)
[2023-03-28] MEDS: CEFAZOLIN 1 GM in Sodium Chloride 0.9% 100 ML IVPB SCH (18:24)
[2023-03-28] MEDS: Pantoprazole 40 MG VIAL IVP SCH (19:40)
[2023-03-29] MEDS ORDERED: CEFAZOLIN 1 GM in Sodium Chloride 0.9% 100 ML IVPB SCH (01:00)
[2023-03-29] MEDS: CEFAZOLIN 1 GM in Sodium Chloride 0.9% 100 ML IVPB SCH ×3 (02:20→18:13)
[2023-03-29] MEDS: Acetaminophen 325 MG TAB PO PRN (05:19)
[2023-03-29 05:55] LABS: #Monocytes 0.7 thou/uL (0.11-0.59); #Neutrophils 8.1 thou/uL (1.40-6.50); %Basophils 0.2 % (0.0-1.0); %Eosinophils 0.3 % (0.0-10.0); %Lymphocytes 13.3 % (21.0-51.0); %Monocytes 6.4 % (0.0-10.0); %Neutrophils 79.4 % (42.0-75.0); Hemoglobin 11.5 g/dL (12.0-16.0); Mean Corpuscular HGB CONC 31.9 g/dL (32.0-36.0); Mean Corpuscular Hemoglobin 29.9 pg (27.0-31.0); Mean Corpuscular Volume 93.5 fl (78.0-98.0); Mean Platelet Volume 12.6 fL (7.4-10.4); RBC Distribution Width 12.9 % (11.5-14.5); Red Blood Cell (RBC) Count 3.85 mill/uL (4.20-5.40); White Blood Cell (WBC) Count 10.2 10x3/uL (4.8-10.8)
[2023-03-29 05:56] LABS: Platelet Count 99 10x3/uL (130-400)
[2023-03-29 06:22] LABS: Anion Gap 11 mmol/L (10-20); BUN (Urea Nitrogen) 25 mg/dL (9.8-20.1); Calc. Creatinine Clearance 66 mL/min (70-130); Calcium 8.7 mg/dL (7.8-10.44); Carbon Dioxide 31 mmol/L (23-31); Chloride 105 mmol/L (98-107); Estimated GFR 67; Glucose 100 mg/dL (83-110); Potassium 3.3 mmol/L (3.5-5.1); Sodium 144 mmol/L (136-145)
[2023-03-29 07:28] LABS: Magnesium 1.3 mg/dL (1.6-2.6)
[2023-03-29] MEDS ORDERED: Potassium Chloride 20 MEQ TAB PO SCH (08:00)
[2023-03-29] MEDS ORDERED: Magnesium Sulfate In Water 4 GM in Premix Bag 1 BAG IVPB SCH (08:00)
[2023-03-29] MEDS ORDERED: Dextrose 5% in Water 1,000 ML IV SCH (14:50)
[2023-03-29] MEDS: Pantoprazole 40 MG VIAL IVP SCH (20:31)
[2023-03-30] MEDS: CEFAZOLIN 1 GM in Sodium Chloride 0.9% 100 ML IVPB SCH ×2 (01:49→12:09)
[2023-03-30 05:22] LABS: #Monocytes 0.6 thou/uL (0.11-0.59); #Neutrophils 8.7 thou/uL (1.40-6.50); %Basophils 0.1 % (0.0-1.0); %Eosinophils 0.1 % (0.0-10.0); %Lymphocytes 12.5 % (21.0-51.0); %Monocytes 5.6 % (0.0-10.0); Hematocrit 36.4 % (36.0-47.0); Hemoglobin 11.6 g/dL (12.0-16.0); Mean Corpuscular HGB CONC 31.9 g/dL (32.0-36.0); Mean Corpuscular Hemoglobin 29.5 pg (27.0-31.0); Mean Corpuscular Volume 92.6 fl (78.0-98.0); Mean Platelet Volume 11.6 fL (7.4-10.4); Platelet Count 124 10x3/uL (130-400); RBC Distribution Width 12.6 % (11.5-14.5); Red Blood Cell (RBC) Count 3.93 mill/uL (4.20-5.40); White Blood Cell (WBC) Count 10.8 10x3/uL (4.8-10.8)
[2023-03-30 05:51] LABS: Anion Gap 14 mmol/L (10-20); BUN (Urea Nitrogen) 16 mg/dL (9.8-20.1); Calc. Creatinine Clearance 61 mL/min (70-130); Calcium 8.9 mg/dL (7.8-10.44); Carbon Dioxide 29 mmol/L (23-31); Chloride 101 mmol/L (98-107); Estimated GFR 62; Glucose 101 mg/dL (83-110); Magnesium 1.7 mg/dL (1.6-2.6); Sodium 141 mmol/L (136-145)
[2023-03-30] MEDS: Acetaminophen 325 MG TAB PO PRN ×2 (06:32→21:10)
[2023-03-30] MEDS ORDERED: Potassium Chloride 20 MEQ TAB PO SCH ×2 (08:00→14:00)
[2023-03-30] MEDS ORDERED: Magnesium 2 GM/50 ML(in water) 2 GM in Premix Bag 1 BAG IVPB SCH (08:00)
[2023-03-30] MEDS ORDERED: D5 LR w/20 mEq KCL 1,000 ML IV SCH (11:00)
[2023-03-30] MEDS ORDERED: Amlodipine 5 MG TAB PO SCH (13:15)
[2023-03-30] MEDS: Cephalexin 250 MG CAP PO SCH (18:30)
[2023-03-30] MEDS: Atorvastatin Calcium 40 MG TAB PO SCH (21:10)
[2023-03-30] MEDS: Magnesium Oxide 400 MG TAB PO SCH (21:10)
[2023-03-31] MEDS: Cephalexin 250 MG CAP PO SCH ×5 (00:06→23:41)
[2023-03-31 06:17] LABS: #Monocytes 0.7 thou/uL (0.11-0.59); #Neutrophils 7.1 thou/uL (1.40-6.50); %Basophils 0.1 % (0.0-1.0); %Eosinophils 0.2 % (0.0-10.0); %Lymphocytes 14.8 % (21.0-51.0); %Monocytes 7.6 % (0.0-10.0); %Neutrophils 76.4 % (42.0-75.0); Hematocrit 37.3 % (36.0-47.0); Hemoglobin 12.1 g/dL (12.0-16.0); Mean Corpuscular HGB CONC 32.4 g/dL (32.0-36.0); Mean Corpuscular Hemoglobin 29.6 pg (27.0-31.0); Mean Corpuscular Volume 91.2 fl (78.0-98.0); Mean Platelet Volume 11.4 fL (7.4-10.4); Platelet Count 135 10x3/uL (130-400); RBC Distribution Width 12.7 % (11.5-14.5); Red Blood Cell (RBC) Count 4.09 mill/uL (4.20-5.40); White Blood Cell (WBC) Count 9.2 10x3/uL (4.8-10.8)
[2023-03-31 06:34] LABS: ALT (SGPT) 22 U/L (8-55); AST (SGOT) 29 U/L (5-34); Albumin 3.4 g/dL (3.4-4.8); Alkaline Phosphatase 104 U/L (40-110); Bilirubin, Direct 0.3 mg/dL (0.1-0.3); Bilirubin, Total 0.7 mg/dL (0.2-1.2); Protein, Total 6.9 g/dL (5.8-8.1)
[2023-03-31 06:40] LABS: Anion Gap 15 mmol/L (10-20); BUN (Urea Nitrogen) 15 mg/dL (9.8-20.1); Calc. Creatinine Clearance 66 mL/min (70-130); Carbon Dioxide 26 mmol/L (23-31); Chloride 103 mmol/L (98-107); Estimated GFR 68; Glucose 99 mg/dL (83-110); Magnesium 1.4 mg/dL (1.6-2.6); Potassium 3.7 mmol/L (3.5-5.1); Sodium 140 mmol/L (136-145)
[2023-03-31] MEDS ORDERED: Magnesium Sulfate In Water 4 GM in Premix Bag 1 BAG IVPB SCH (08:00)
[2023-03-31] MEDS: Propranolol 10 MG TAB PO SCH (09:47)
[2023-03-31] MEDS: Amlodipine 5 MG TAB PO SCH (09:48)
[2023-03-31] MEDS: Magnesium Oxide 400 MG TAB PO SCH ×3 (09:48→20:35)
[2023-03-31] MEDS: Atorvastatin Calcium 40 MG TAB PO SCH (20:35)
[2023-03-31] MEDS: Acetaminophen 325 MG TAB PO PRN (20:39)
[2023-03-31] MEDS: Nystatin Ointment 15 GM TUBE TOP SCH (20:47)
[2023-04-01 05:52] LABS: #Monocytes 0.8 thou/uL (0.11-0.59); #Neutrophils 5.6 thou/uL (1.40-6.50); %Basophils 0.1 % (0.0-1.0); %Eosinophils 0.2 % (0.0-10.0); %Lymphocytes 22.6 % (21.0-51.0); %Monocytes 9.5 % (0.0-10.0); %Neutrophils 66.9 % (42.0-75.0); Hematocrit 34.7 % (36.0-47.0); Hemoglobin 11.1 g/dL (12.0-16.0); Mean Corpuscular Hemoglobin 29.1 pg (27.0-31.0); Mean Corpuscular Volume 90.8 fl (78.0-98.0); Mean Platelet Volume 11.4 fL (7.4-10.4); Platelet Count 188 10x3/uL (130-400); RBC Distribution Width 12.5 % (11.5-14.5); Red Blood Cell (RBC) Count 3.82 mill/uL (4.20-5.40); White Blood Cell (WBC) Count 8.4 10x3/uL (4.8-10.8)
[2023-04-01] MEDS: Cephalexin 250 MG CAP PO SCH ×3 (05:53→17:30)
[2023-04-01 06:18] LABS: Anion Gap 13 mmol/L (10-20); BUN (Urea Nitrogen) 21 mg/dL (9.8-20.1); Calc. Creatinine Clearance 50 mL/min (70-130); Calcium 8.7 mg/dL (7.8-10.44); Carbon Dioxide 28 mmol/L (23-31); Chloride 101 mmol/L (98-107); Estimated GFR 45; Glucose 108 mg/dL (83-110); Magnesium 1.4 mg/dL (1.6-2.6); Potassium 3.5 mmol/L (3.5-5.1); Sodium 138 mmol/L (136-145)
[2023-04-01] MEDS ORDERED: Magnesium Sulfate In Water 4 GM in Premix Bag 1 BAG IVPB SCH (08:00)
[2023-04-01] MEDS ORDERED: Potassium Chloride 20 MEQ TAB PO SCH (08:00)
[2023-04-01] MEDS: Nystatin Ointment 15 GM TUBE TOP SCH ×2 (09:28→20:35)
[2023-04-01] MEDS: Amlodipine 5 MG TAB PO SCH ×2 (09:28→10:10)
[2023-04-01] MEDS: Magnesium Oxide 400 MG TAB PO SCH ×3 (09:28→20:35)
[2023-04-01] MEDS: Propranolol 10 MG TAB PO SCH (09:28)
[2023-04-01] MEDS: Atorvastatin Calcium 40 MG TAB PO SCH (20:35)
[2023-04-02 06:41] LABS: #Monocytes 0.7 thou/uL (0.11-0.59); #Neutrophils 4.8 thou/uL (1.40-6.50); %Basophils 0.1 % (0.0-1.0); %Eosinophils 0.1 % (0.0-10.0); %Lymphocytes 19.9 % (21.0-51.0); %Monocytes 10.5 % (0.0-10.0); Hematocrit 35.1 % (36.0-47.0); Hemoglobin 11.2 g/dL (12.0-16.0); Mean Corpuscular HGB CONC 31.9 g/dL (32.0-36.0); Mean Corpuscular Hemoglobin 29.6 pg (27.0-31.0); Mean Corpuscular Volume 92.9 fl (78.0-98.0); Mean Platelet Volume 10.9 fL (7.4-10.4); Platelet Count 211 10x3/uL (130-400); RBC Distribution Width 12.7 % (11.5-14.5); Red Blood Cell (RBC) Count 3.78 mill/uL (4.20-5.40); White Blood Cell (WBC) Count 6.9 10x3/uL (4.8-10.8)
[2023-04-02 06:56] LABS: Anion Gap 15 mmol/L (10-20); BUN (Urea Nitrogen) 23 mg/dL (9.8-20.1); Calc. Creatinine Clearance 54 mL/min (70-130); Calcium 8.9 mg/dL (7.8-10.44); Carbon Dioxide 26 mmol/L (23-31); Chloride 103 mmol/L (98-107); Estimated GFR 50; Glucose 110 mg/dL (83-110); Magnesium 1.4 mg/dL (1.6-2.6); Potassium 3.6 mmol/L (3.5-5.1); Sodium 140 mmol/L (136-145)
[2023-04-02 07:22] LABS: HIV (1/2) Antibody/Antigen Non-Reactive (NonReactive); HIV 1/2 INDEX 0.15 S/CO (<1.00)
[2023-04-02] MEDS ORDERED: Magnesium Sulfate In Water 4 GM in Premix Bag 1 BAG IVPB SCH (08:15)
[2023-04-02] MEDS: Amlodipine 5 MG TAB PO SCH (08:41)
[2023-04-02] MEDS: Propranolol 10 MG TAB PO SCH (08:41)
[2023-04-02] MEDS: Magnesium Oxide 400 MG TAB PO SCH ×3 (08:42→22:23)
[2023-04-02] MEDS: Nystatin Ointment 15 GM TUBE TOP SCH ×2 (08:42→22:24)
[2023-04-02] MEDS ORDERED: Metoprolol Tartrate 5 MG/5 ML VIAL IVP SCH (09:19)
[2023-04-02] MEDS ORDERED: Metoprolol Tartrate 5 MG/5 ML VIAL IVP PRN (09:19)
[2023-04-02] MEDS ORDERED: Metoprolol Tartrate 5 MG/5 ML VIAL ONE ×2 (09:23)
[2023-04-02] MEDS ORDERED: dilTIAZem 125 MG in Sodium Chloride 0.9% 100 ML IVPB SCH (09:30)
[2023-04-02] MEDS ORDERED: Digoxin 0.5 MG/2 ML AMP SLOW IVP SCH (09:30)
[2023-04-02] MEDS ORDERED: Sodium Chloride 0.9% 500 ML IV SCH (09:30)
[2023-04-02] MEDS ORDERED: Digoxin 0.5 MG/2 ML AMP ONE (09:31)
[2023-04-02 09:46] LABS: Free T4 (Free Thyroxine) 1.05 ng/dL (0.70-1.48); Vitamin B12 536 pg/mL (211-911)
[2023-04-02] MEDS ORDERED: Communication Order-Pharmacy FS ONE (09:48)
[2023-04-02] MEDS: Acetaminophen 325 MG TAB PO PRN (09:57)
[2023-04-02] MEDS ORDERED: Heparin 25,000 units/D5W 500 ML IVPB SCH (10:00)
[2023-04-02] MEDS ORDERED: Heparin 10,000 UNITS/ 10 ML VIAL SLOW IVP SCH (10:00)
[2023-04-02] MEDS ORDERED: Sodium Chloride 0.9% 1,000 ML IV SCH (10:00)
[2023-04-02] MEDS ORDERED: Aspirin 325 MG TAB PO SCH (10:00)
[2023-04-02 10:18] LABS: Troponin I 0.294 ng/mL (< 0.028)
[2023-04-02] MEDS: dilTIAZem 25 MG/5 ML VIAL SLOW IVP SCH ×2 (10:56→11:41)
[2023-04-02 11:22] LABS: Syphilis Antibody Nonreactive (Nonreactive); Syphilis Antibody Index 0.05 S/CO (<1.00 Non-Reactive)
[2023-04-02 12:54] LABS: Troponin I 0.272 ng/mL (< 0.028)
[2023-04-02 15:45] LABS: Anion Gap 14 mmol/L (10-20); BUN (Urea Nitrogen) 23 mg/dL (9.8-20.1); Calc. Creatinine Clearance 53 mL/min (70-130); Calcium 8.6 mg/dL (7.8-10.44); Carbon Dioxide 24 mmol/L (23-31); Chloride 105 mmol/L (98-107); Estimated GFR 49; Glucose 157 mg/dL (83-110); Potassium 3.7 mmol/L (3.5-5.1); Sodium 139 mmol/L (136-145)
[2023-04-02 16:13] LABS: Troponin I 0.351 ng/mL (< 0.028)
[2023-04-02] MEDS ORDERED: Metoprolol Tartrate 25 MG TAB PO SCH ×2 (19:15→21:00)
[2023-04-02] MEDS: Atorvastatin Calcium 40 MG TAB PO SCH (22:23)
[2023-04-03 04:27] LABS: #Eosinphils 0.1 thou/uL (0.0-0.7); #Monocytes 0.5 thou/uL (0.11-0.59); #Neutrophils 4.4 thou/uL (1.40-6.50); %Basophils 0.2 % (0.0-1.0); %Eosinophils 0.8 % (0.0-10.0); %Monocytes 7.5 % (0.0-10.0); Hematocrit 37.1 % (36.0-47.0); Hemoglobin 11.4 g/dL (12.0-16.0); Mean Corpuscular HGB CONC 30.7 g/dL (32.0-36.0); Mean Corpuscular Hemoglobin 29.5 pg (27.0-31.0); Mean Platelet Volume 11.7 fL (7.4-10.4); Red Blood Cell (RBC) Count 3.86 mill/uL (4.20-5.40)
[2023-04-03 04:51] LABS: Anion Gap 14 mmol/L (10-20); BUN (Urea Nitrogen) 21 mg/dL (9.8-20.1); Calc. Creatinine Clearance 55 mL/min (70-130); Calcium 8.9 mg/dL (7.8-10.44); Carbon Dioxide 26 mmol/L (23-31); Chloride 104 mmol/L (98-107); Estimated GFR 51; Glucose 143 mg/dL (83-110); Sodium 140 mmol/L (136-145)
[2023-04-03 05:39] LABS: Mean Corpuscular Volume 96.1 fl (78.0-98.0); Platelet Count 153 10x3/uL (130-400)
[2023-04-03] MEDS ORDERED: Magnesium 2 GM/50 ML(in water) 2 GM in Premix Bag 1 BAG IVPB SCH (08:00)
[2023-04-03] MEDS: Propranolol 10 MG TAB PO SCH (09:31)
[2023-04-03] MEDS: Metoprolol Tartrate 25 MG TAB PO SCH ×2 (09:31→21:08)
[2023-04-03] MEDS: Aspirin 81 mg Enteric Coated Tablet PO SCH (09:32)
[2023-04-03] MEDS: Magnesium Oxide 400 MG TAB PO SCH ×3 (09:32→21:08)
[2023-04-03] MEDS: Nystatin Ointment 15 GM TUBE TOP SCH ×2 (09:32→21:09)
[2023-04-03] MEDS: Atorvastatin Calcium 40 MG TAB PO SCH (21:09)
[2023-04-04 05:01] LABS: #Monocytes 0.7 thou/uL (0.11-0.59); #Neutrophils 3.8 thou/uL (1.40-6.50); %Basophils 0.2 % (0.0-1.0); %Eosinophils 0.2 % (0.0-10.0); %Lymphocytes 24.8 % (21.0-51.0); %Monocytes 11.6 % (0.0-10.0); %Neutrophils 62.7 % (42.0-75.0); Hematocrit 35.2 % (36.0-47.0); Hemoglobin 10.9 g/dL (12.0-16.0); Mean Corpuscular Hemoglobin 29.3 pg (27.0-31.0); Mean Corpuscular Volume 94.6 fl (78.0-98.0); Mean Platelet Volume 10.5 fL (7.4-10.4); Platelet Count 226 10x3/uL (130-400); RBC Distribution Width 13.2 % (11.5-14.5); Red Blood Cell (RBC) Count 3.72 mill/uL (4.20-5.40); White Blood Cell (WBC) Count 6.1 10x3/uL (4.8-10.8)
[2023-04-04 05:46] LABS: Anion Gap 14 mmol/L (10-20); BUN (Urea Nitrogen) 23 mg/dL (9.8-20.1); Calc. Creatinine Clearance 56 mL/min (70-130); Calcium 8.8 mg/dL (7.8-10.44); Carbon Dioxide 27 mmol/L (23-31); Chloride 104 mmol/L (98-107); Estimated GFR 53; Glucose 107 mg/dL (83-110); Magnesium 1.8 mg/dL (1.6-2.6); Potassium 4.1 mmol/L (3.5-5.1); Sodium 141 mmol/L (136-145)
[2023-04-04] MEDS ORDERED: Magnesium 2 GM/50 ML(in water) 2 GM in Premix Bag 1 BAG IVPB SCH (08:00)
[2023-04-04] MEDS: Aspirin 81 mg Enteric Coated Tablet PO SCH (09:38)
[2023-04-04] MEDS: Metoprolol Tartrate 25 MG TAB PO SCH ×2 (09:38→20:49)
[2023-04-04] MEDS: Magnesium Oxide 400 MG TAB PO SCH ×3 (09:38→20:49)
[2023-04-04] MEDS: Propranolol 10 MG TAB PO SCH (09:38)
[2023-04-04] MEDS: Dronedarone HCl 400 MG TAB PO SCH ×2 (09:38→17:59)
[2023-04-04] MEDS: Nystatin Ointment 15 GM TUBE TOP SCH ×2 (09:39→21:23)
[2023-04-04 11:15] LABS: Actual Bicarbonate (HCO3a) 8.5 mEq/L (22-28); CO2 Tension 19.6 mmHg (35.0-45.0)
[2023-04-04] MEDS: Atorvastatin Calcium 40 MG TAB PO SCH (20:49)
[2023-04-05 04:40] LABS: #Monocytes 0.6 thou/uL (0.11-0.59); #Neutrophils 3.2 thou/uL (1.40-6.50); %Basophils 0.4 % (0.0-1.0); %Eosinophils 0.2 % (0.0-10.0); %Lymphocytes 27.7 % (21.0-51.0); %Neutrophils 59.3 % (42.0-75.0); Hematocrit 34.7 % (36.0-47.0); Hemoglobin 10.7 g/dL (12.0-16.0); Mean Corpuscular HGB CONC 30.8 g/dL (32.0-36.0); Mean Corpuscular Hemoglobin 28.9 pg (27.0-31.0); Mean Corpuscular Volume 93.8 fl (78.0-98.0); Mean Platelet Volume 10.5 fL (7.4-10.4); Platelet Count 232 10x3/uL (130-400); RBC Distribution Width 13.2 % (11.5-14.5); White Blood Cell (WBC) Count 5.3 10x3/uL (4.8-10.8)
[2023-04-05 05:13] LABS: Anion Gap 13 mmol/L (10-20); BUN (Urea Nitrogen) 22 mg/dL (9.8-20.1); Calc. Creatinine Clearance 59 mL/min (70-130); Calcium 9.1 mg/dL (7.8-10.44); Carbon Dioxide 27 mmol/L (23-31); Chloride 104 mmol/L (98-107); Estimated GFR 55; Glucose 102 mg/dL (83-110); Magnesium 1.6 mg/dL (1.6-2.6); Potassium 4.2 mmol/L (3.5-5.1); Sodium 140 mmol/L (136-145)
[2023-04-05] MEDS ORDERED: Magnesium 2 GM/50 ML(in water) 2 GM in Premix Bag 1 BAG IVPB SCH (08:00)
[2023-04-05 08:07] LABS: Cardiac Risk 4.6 (Less than 4.5)
[2023-04-05] MEDS: Acetaminophen 325 MG TAB PO PRN ×2 (09:18→21:50)
[2023-04-05] MEDS: Metoprolol Tartrate 25 MG TAB PO SCH ×2 (09:20→21:42)
[2023-04-05] MEDS: Dronedarone HCl 400 MG TAB PO SCH ×2 (09:20→16:07)
[2023-04-05] MEDS: Aspirin 81 mg Enteric Coated Tablet PO SCH (09:20)
[2023-04-05] MEDS: Magnesium Oxide 400 MG TAB PO SCH ×3 (09:20→21:40)
[2023-04-05] MEDS: Propranolol 10 MG TAB PO SCH (09:20)
[2023-04-05] MEDS: Nystatin Ointment 15 GM TUBE TOP SCH ×2 (09:30→21:41)
[2023-04-05 14:05] VITALS: BMI 30.9
[2023-04-05] MEDS: HumaLOG 300 UNITS/3 ML VIAL SC PRN (16:06)
[2023-04-05] MEDS: Atorvastatin Calcium 40 MG TAB PO SCH (21:39)
[2023-04-06 04:46] LABS: #Monocytes 0.6 thou/uL (0.11-0.59); #Neutrophils 2.8 thou/uL (1.40-6.50); %Basophils 0.4 % (0.0-1.0); %Eosinophils 0.2 % (0.0-10.0); Hematocrit 30.6 % (36.0-47.0); Hemoglobin 9.7 g/dL (12.0-16.0); Mean Corpuscular HGB CONC 31.7 g/dL (32.0-36.0); Mean Corpuscular Hemoglobin 29.1 pg (27.0-31.0); Mean Corpuscular Volume 91.9 fl (78.0-98.0); Mean Platelet Volume 10.1 fL (7.4-10.4); Platelet Count 242 10x3/uL (130-400); RBC Distribution Width 13.2 % (11.5-14.5); Red Blood Cell (RBC) Count 3.33 mill/uL (4.20-5.40); White Blood Cell (WBC) Count 4.8 10x3/uL (4.8-10.8)
[2023-04-06 05:16] LABS: Anion Gap 11 mmol/L (10-20); BUN (Urea Nitrogen) 26 mg/dL (9.8-20.1); Calc. Creatinine Clearance 46 mL/min (70-130); Calcium 8.9 mg/dL (7.8-10.44); Carbon Dioxide 28 mmol/L (23-31); Chloride 103 mmol/L (98-107); Estimated GFR 42; Glucose 119 mg/dL (83-110); Magnesium 1.9 mg/dL (1.6-2.6); Potassium 4.2 mmol/L (3.5-5.1); Sodium 138 mmol/L (136-145)
[2023-04-06] MEDS ORDERED: Magnesium 2 GM/50 ML(in water) 2 GM in Premix Bag 1 BAG IVPB SCH (08:00)
[2023-04-06] MEDS: Metoprolol Tartrate 25 MG TAB PO SCH ×2 (09:53→22:08)
[2023-04-06] MEDS: Dronedarone HCl 400 MG TAB PO SCH ×2 (09:53→16:15)
[2023-04-06] MEDS: Propranolol 10 MG TAB PO SCH (09:53)
[2023-04-06] MEDS: Magnesium Oxide 400 MG TAB PO SCH ×3 (09:53→22:08)
[2023-04-06] MEDS: Aspirin 81 mg Enteric Coated Tablet PO SCH (09:53)
[2023-04-06] MEDS: Nystatin Ointment 15 GM TUBE TOP SCH ×2 (10:43→22:09)
[2023-04-06] MEDS: Atorvastatin Calcium 40 MG TAB PO SCH (22:08)
[2023-04-07 04:41] LABS: #Monocytes 0.5 thou/uL (0.11-0.59); #Neutrophils 2.9 thou/uL (1.40-6.50); %Basophils 0.2 % (0.0-1.0); %Eosinophils 0.2 % (0.0-10.0); %Lymphocytes 30.6 % (21.0-51.0); %Monocytes 10.5 % (0.0-10.0); %Neutrophils 58.1 % (42.0-75.0); Hematocrit 35.7 % (36.0-47.0); Hemoglobin 11.1 g/dL (12.0-16.0); Mean Corpuscular HGB CONC 31.1 g/dL (32.0-36.0); Mean Corpuscular Hemoglobin 29.3 pg (27.0-31.0); Mean Corpuscular Volume 94.2 fl (78.0-98.0); Mean Platelet Volume 10.1 fL (7.4-10.4); Platelet Count 294 10x3/uL (130-400); RBC Distribution Width 13.2 % (11.5-14.5); Red Blood Cell (RBC) Count 3.79 mill/uL (4.20-5.40)
[2023-04-07 04:42] LABS: Hematocrit 36.2 % (36.0-47.0); Hemoglobin 11.1 g/dL (12.0-16.0); Platelet Count 301 10x3/uL (130-400)
[2023-04-07 05:07] LABS: Anion Gap 15 mmol/L (10-20); BUN (Urea Nitrogen) 21 mg/dL (9.8-20.1); Calc. Creatinine Clearance 52 mL/min (70-130); Calcium 9.6 mg/dL (7.8-10.44); Carbon Dioxide 27 mmol/L (23-31); Chloride 103 mmol/L (98-107); Estimated GFR 49; Glucose 127 mg/dL (83-110); Magnesium 1.8 mg/dL (1.6-2.6); Potassium 4.2 mmol/L (3.5-5.1); Sodium 141 mmol/L (136-145)
[2023-04-07] MEDS ORDERED: Magnesium 2 GM/50 ML(in water) 2 GM in Premix Bag 1 BAG IVPB SCH (08:00)
[2023-04-07] MEDS: Dronedarone HCl 400 MG TAB PO SCH ×2 (08:42→15:50)
[2023-04-07] MEDS: Metoprolol Tartrate 25 MG TAB PO SCH ×2 (08:42→22:47)
[2023-04-07] MEDS: Aspirin 81 mg Enteric Coated Tablet PO SCH (08:42)
[2023-04-07] MEDS: Propranolol 10 MG TAB PO SCH (08:43)
[2023-04-07] MEDS: Magnesium Oxide 400 MG TAB PO SCH ×3 (08:43→19:49)
[2023-04-07] MEDS: Nystatin Ointment 15 GM TUBE TOP SCH ×2 (09:29→22:48)
[2023-04-07] MEDS: Acetaminophen 325 MG TAB PO PRN (19:49)
[2023-04-07] MEDS: Atorvastatin Calcium 40 MG TAB PO SCH (19:49)
[2023-04-08 05:10] LABS: Anion Gap 14 mmol/L (10-20); BUN (Urea Nitrogen) 22 mg/dL (9.8-20.1); Calc. Creatinine Clearance 55 mL/min (70-130); Calcium 9.4 mg/dL (7.8-10.44); Carbon Dioxide 26 mmol/L (23-31); Chloride 101 mmol/L (98-107); Estimated GFR 52; Glucose 112 mg/dL (83-110); Magnesium 1.6 mg/dL (1.6-2.6); Potassium 4.3 mmol/L (3.5-5.1); Sodium 137 mmol/L (136-145)
[2023-04-08] MEDS ORDERED: Magnesium 2 GM/50 ML(in water) 2 GM in Premix Bag 1 BAG IVPB SCH (08:00)
[2023-04-08] MEDS: Magnesium Oxide 400 MG TAB PO SCH ×3 (11:01→21:25)
[2023-04-08] MEDS: Aspirin 81 mg Enteric Coated Tablet PO SCH (11:01)
[2023-04-08] MEDS: Propranolol 10 MG TAB PO SCH (11:01)
[2023-04-08] MEDS: Metoprolol Tartrate 25 MG TAB PO SCH ×2 (11:01→21:26)
[2023-04-08] MEDS: Dronedarone HCl 400 MG TAB PO SCH ×2 (11:01→17:00)
[2023-04-08] MEDS: Nystatin Ointment 15 GM TUBE TOP SCH ×2 (12:06→21:26)
[2023-04-08] MEDS: Acetaminophen 325 MG TAB PO PRN ×2 (12:12→21:25)
[2023-04-08] MEDS: Atorvastatin Calcium 40 MG TAB PO SCH (21:26)
[2023-04-09] MEDS: Aspirin 81 mg Enteric Coated Tablet PO SCH (09:17)
[2023-04-09] MEDS: Magnesium Oxide 400 MG TAB PO SCH ×3 (09:17→20:22)
[2023-04-09] MEDS: Nystatin Ointment 15 GM TUBE TOP SCH ×2 (09:17→20:25)
[2023-04-09] MEDS: Dronedarone HCl 400 MG TAB PO SCH ×2 (09:17→16:42)
[2023-04-09] MEDS: Propranolol 10 MG TAB PO SCH (09:17)
[2023-04-09] MEDS: Metoprolol Tartrate 25 MG TAB PO SCH ×2 (09:17→20:22)
[2023-04-09] MEDS: Acetaminophen 325 MG TAB PO PRN ×2 (09:25→20:22)
[2023-04-09] MEDS: Atorvastatin Calcium 40 MG TAB PO SCH (20:22)
[2023-04-10 07:54] VITALS: BP 99/54; TEMP 97.5
[2023-04-10] MEDS: Aspirin 81 mg Enteric Coated Tablet PO SCH (08:13)
[2023-04-10] MEDS: Propranolol 10 MG TAB PO SCH (08:13)
[2023-04-10] MEDS: Metoprolol Tartrate 25 MG TAB PO SCH (08:13)
[2023-04-10] MEDS: Magnesium Oxide 400 MG TAB PO SCH (08:13)
[2023-04-10] MEDS: Dronedarone HCl 400 MG TAB PO SCH (08:13)
[2023-04-10] MEDS: Nystatin Ointment 15 GM TUBE TOP SCH (08:17)
[2023-04-10] MEDS ORDERED: Apixaban 5 MG TAB PO SCH (09:00)
== END 2023-04-10 11:10 | disposition home or self-care (01) | DRG 871 ==
LOC: ERS 23:02 → CCU 03-24 00:59 → IMCU/EMU 03-25 17:04 → T4-B 03-28 14:56 → 2NO 04-02 11:16
PROVIDERS: ADMIT Student in an Organized Health Care Education/Training Program; ATTEND Hospitalist
PROC: 30233N1 Transfusion of Nonautologous Red Blood Cells into Peripheral Vein, Percutaneous Approach (ICD-10-PCS; 2023-03-23)
PROC: 4A133R1 Monitoring of Arterial Saturation, Peripheral, Percutaneous Approach (ICD-10-PCS; 2023-03-23)
PROC: 3E03329 Introduction of Other Anti-infective into Peripheral Vein, Percutaneous Approach (ICD-10-PCS; 2023-03-23)
PROC: 4A00X4Z Measurement of Central Nervous Electrical Activity, External Approach (ICD-10-PCS; principal; 2023-04-05)
DX: A41.51 Sepsis due to Escherichia coli [E. coli] (principal); G93.41 Metabolic encephalopathy; K85.90 Acute pancreatitis without necrosis or infection, unspecified; I21.A1 Myocardial infarction type 2; I63.9 Cerebral infarction, unspecified; N17.9 Acute kidney failure, unspecified; E87.20 Acidosis, unspecified; K92.1 Melena; E87.1 Hypo-osmolality and hyponatremia; E87.0 Hyperosmolality and hypernatremia; N30.00 Acute cystitis without hematuria; I47.10 Supraventricular tachycardia, unspecified; Z51.5 Encounter for palliative care; R65.20 Severe sepsis without septic shock; E78.5 Hyperlipidemia, unspecified; I12.9 Hypertensive chronic kidney disease with stage 1 through stage 4 chronic kidney disease, or unspecified chronic kidney disease; N18.30 Chronic kidney disease, stage 3 unspecified; R74.8 Abnormal levels of other serum enzymes; D69.6 Thrombocytopenia, unspecified; E11.22 Type 2 diabetes mellitus with diabetic chronic kidney disease; R79.89 Other specified abnormal findings of blood chemistry; E83.42 Hypomagnesemia; I48.91 Unspecified atrial fibrillation; D63.1 Anemia in chronic kidney disease; I95.9 Hypotension, unspecified; E87.5 Hyperkalemia; R77.8 Other specified abnormalities of plasma proteins; Z79.2 Long term (current) use of antibiotics; Z79.899 Other long term (current) drug therapy; Z79.84 Long term (current) use of oral hypoglycemic drugs; E87.6 Hypokalemia; E87.8 Other disorders of electrolyte and fluid balance, not elsewhere classified
CPT/HCPCS: 36415; 36416; 36430; 36600; 51701; 70450; 70551; 71045; 74176; 80048; 80053; 80061; 80076; 80202; 81001; 82140; 82274; 82550; 82607; 82805; 83605; 83690; 83735; 84100; 84439; 84443; 84481; 84484; 85025; 85610; 85730; 86780; 86850; 86900; 86901; 87040; 87077; 87086; 87186; 87389; 93005; 93010; 93306; 94760; 95711; 95819; 95957; 96361; 96365; 96366; 96368; 96375; 97139; C9113; J0282; J0360; J0690; J0692; J1644; J1815; J2405; J3010; J3370; J3475; J3480; J3490; J7050; J7070; J7120; J7999; P9016